=== PATIENT | female | born 1995 | race Caucasian/White ===

== ENCOUNTER 2017-02-05 09:42 | Emergency (ER) | payer BC ==
[~2017-02-05] VITALS: Ht 165.1 cm; Wt 54.4 kg
[~2017-02-05 09:42] MED LIST: AMOXICILLIN500 M2 PO; BACTRIM DS 8001 TA1 PO; CEPHALEXIN500 M1 PO; CYCLOBENZAPRINE10 MG PO; CYCLOBENZAPRINE5 M3 PO; KEFLEX500 MG PO; MACROBID100 M1 PO; Motrin,Rufen800 MG PO; NAPROSYN500 MG PO; PRILOSEC20 MG PO; PYRIDIUM200 MG PO; TAGAMET400 MG PO; ULTRAM50 MG PO; ZOFRAN ODT4 MG SL
[2017-02-05 09:48] VITALS: BP 146/82
[2017-02-05] MEDS ORDERED: PREDNISONE10 MG PO (10:01)
== END 2017-02-05 10:38 | disposition home or self-care (01) ==
LOC: ED 09:42
DX: L23.7 Allergic contact dermatitis due to plants, except food (principal); F17.200 Nicotine dependence, unspecified, uncomplicated

== ENCOUNTER 2017-03-23 00:58 | Emergency (ER) | payer BC ==
[~2017-03-23] VITALS: Ht 167.6 cm; Wt 54.4 kg
[~2017-03-23 00:58] MED LIST changes: +PREDNISONE10 MG PO
[2017-03-23 01:07] VITALS: BP 152/71
[2017-03-23] MEDS ORDERED: NAPROSYN500 MG PO (01:08)
[2017-03-23] MEDS ORDERED: CIPRO500 MG PO (01:09)
[2017-03-23 01:27] LABS: BILIRUBIN NEGATIVE (NEGATIVE); BLOOD NEGATIVE (NEGATIVE); CLARITY CLOUDY (CLEAR); COLOR YELLOW (YELLOW); GLUCOSE NEGATIVE (NEGATIVE); KETONE TRACE (NEGATIVE); LEUKO ESTERASE TRACE (NEGATIVE); NITRITE NEGATIVE (NEGATIVE); PROTEIN TRACE (NEGATIVE); SPECIFIC GRAVITY 1.015 (1.005-1.030)
[2017-03-23 01:35] LABS: BACTERIA 3+; EPITHELIAL CELLS 45-50; URINE REFLEX COMMENT YES (NO)
[2017-03-23 01:43] LABS: BASO % 0.1 % (0.0-1.0); EOS # 0.2 10*3/uL (0.0-0.4); EOS % 1.6 % (1.0-4.0); HEMATOCRIT 32.6 % (37.0-47.0); HEMOGLOBIN 10.9 g/dl (12.0-16.0); LYMPH # 1.7 10*3/uL (1.3-4.4); LYMPH % 16.5 % (27.0-41.0); MEAN CELL VOLUME 92.4 fl (81.0-99.0); MEAN CORPUSCULAR HGB 30.9 pg (27.0-31.0); MEAN CORPUSCULAR HGB CONC 33.4 g/dl (33.0-37.0); MEAN PLATELET VOLUME 10.3 fl (9.6-12.3); MONO # 1.3 10*3/uL (0.1-1.0); MONO % 13.1 % (3.0-9.0); NEUT % 68.4 % (47.0-73.0); PLATELET COUNT AUTOMATED 229 10*3/uL (130-400); RED BLOOD COUNT 3.53 10*6/uL (4.10-5.10); RED CELL DISTRI WIDTH 12.5 % (0-14.5); WHITE BLOOD COUNT 10.2 10*3/uL (4.8-10.8)
[2017-03-23 01:54] LABS: BUN 15 mg/dl (7-24); CARBON DIOXIDE 28 mmol/L (21-32); CHLORIDE 106 mmol/L (98-107); EST GLOM FILT AFRICAN AMERICAN > 60 ml/min; GLUCOSE 130 mg/dL (65-99); POTASSIUM 3.6 mmol/L (3.5-5.1); SODIUM 138 mmol/L (136-145)
[2017-03-23] MEDS ORDERED: BACTRIM DS 8001 TA1 PO (02:43)
== END 2017-03-23 03:07 | disposition home or self-care (01) ==
LOC: ED 00:58
PROVIDERS: Emergency Medicine; Physician Assistant
DX: N39.0 Urinary tract infection, site not specified (principal); F17.200 Nicotine dependence, unspecified, uncomplicated

== ENCOUNTER 2017-04-01 18:27 | Emergency (ER) | payer BC ==
[~2017-04-01] VITALS: Wt 97.5 kg
[~2017-04-01 18:27] MED LIST changes: +CIPRO500 MG PO
[2017-04-01 18:35] VITALS: BP 145/76
[2017-04-01] MEDS ORDERED: IBU800 MG PO (19:39)
== END 2017-04-01 19:54 | disposition home or self-care (01) ==
LOC: ED 18:27
DX: S82.402A Unspecified fracture of shaft of left fibula, initial encounter for closed fracture (principal); F17.200 Nicotine dependence, unspecified, uncomplicated; W10.9XXA Fall (on) (from) unspecified stairs and steps, initial encounter; Y93.89 Activity, other specified; Y92.9 Unspecified place or not applicable; Y99.9 Unspecified external cause status

== ENCOUNTER → 2017-10-01 | Outpatient (CLI) | payer BC ==
[~2017-10-01] MED LIST changes: +IBU800 MG PO
[2017-10-01 09:46] LABS: BASO % 0.4 % (0.0-1.0); EOS # 0.3 10*3/uL (0.0-0.4); EOS % 5.4 % (1.0-4.0); HEMATOCRIT 38.2 % (37.0-47.0); HEMOGLOBIN 12.6 g/dl (12.0-16.0); LYMPH # 1.6 10*3/uL (1.3-4.4); LYMPH % 33.8 % (27.0-41.0); MEAN CELL VOLUME 91.6 fl (81.0-99.0); MEAN CORPUSCULAR HGB 30.2 pg (27.0-31.0); MEAN PLATELET VOLUME 9.9 fl (9.6-12.3); MONO # 0.4 10*3/uL (0.1-1.0); MONO % 7.8 % (3.0-9.0); NEUT # 2.4 10*3/uL (2.3-7.9); NEUT % 52.4 % (47.0-73.0); PLATELET COUNT AUTOMATED 265 10*3/uL (130-400); RED BLOOD COUNT 4.17 10*6/uL (4.10-5.10); RED CELL DISTRI WIDTH 12.9 % (0-14.5); WHITE BLOOD COUNT 4.6 10*3/uL (4.8-10.8)
[2017-10-01 10:21] LABS: ALBUMIN 4.1 gm/dl (3.1-4.5); ALKALINE PHOSPHATASE 110 U/L (45-117); BUN 16 mg/dl (7-24); CHLORIDE 104 mmol/L (98-107); CREATININE 0.75 mg/dL (0.55-1.02); FREE T4 0.82 ng/dl (0.76-1.46); IRON 51 ug/dL (50-170); POTASSIUM 4.3 mmol/L (3.5-5.1); SGOT/AST 17 IU/L (3-35); SGPT/ALT 22 U/L (12-78); SODIUM 140 mmol/L (136-145); T3 UPTAKE 32 % (31-39); TOTAL IRON BINDING CAPACITY 376 ug/dl (250-450); TOTAL PROTEIN 7.6 gm/dL (6.4-8.2)
== END | disposition home or self-care (01) ==
LOC: LAB 09:14
DX: R53.83 Other fatigue (principal); R79.89 Other specified abnormal findings of blood chemistry

== ENCOUNTER 2017-11-17 23:57 | Emergency (ER) | payer SELFPAY ==
[~2017-11-17] VITALS: Ht 162.5 cm; Wt 111.1 kg
[2017-11-18 00:27] VITALS: BP 125/83
[2017-11-18] MEDS ORDERED: ZOFRAN ODT4 MG SL (01:11)
[2017-11-18] MEDS ORDERED: Motrin,Rufen800 MG PO (01:11)
== END 2017-11-18 01:57 | disposition home or self-care (01) ==
LOC: ED 23:57
DX: G43.909 Migraine, unspecified, not intractable, without status migrainosus (principal)

== ENCOUNTER → 2018-06-04 | Outpatient (CLI) | payer BC | END | disposition home or self-care (01) | LOC: RAD 10:46 | DX: N20.0 Calculus of kidney (principal); Z96.0 Presence of urogenital implants ==

== ENCOUNTER 2019-06-08 10:02 | Emergency (ER) | payer BC ==
[~2019-06-08] VITALS: Ht 167.6 cm; Wt 117.9 kg
[~2019-06-08 10:02] MED LIST changes: +MEDROL DOSEPAK4 MG PO
[2019-06-08 10:05] VITALS: BP 126/67
[2019-06-08] MEDS ORDERED: PENICILLIN-VK500 MG PO (10:43)
[2019-06-08] MEDS ORDERED: NAPROSYN500 MG PO (10:43)
== END 2019-06-08 11:12 | disposition home or self-care (01) ==
LOC: ED 10:02
DX: K02.9 Dental caries, unspecified (principal); Z88.2 Allergy status to sulfonamides

== ENCOUNTER 2019-08-07 23:08 | Emergency (ER) | payer BC ==
[~2019-08-07] VITALS: Ht 167.6 cm; Wt 117.9 kg
[~2019-08-07 23:08] MED LIST changes: +PENICILLIN-VK500 MG PO
[2019-08-07 23:12] VITALS: BP 109/50
[2019-08-08] MEDS ORDERED: PREDNISONE20 M1 PO (02:02)
[2019-08-08] MEDS ORDERED: AMOXICILLIN500 M2 PO (02:02)
== END 2019-08-08 02:19 | disposition home or self-care (01) ==
LOC: ED 23:08
DX: J01.90 Acute sinusitis, unspecified (principal); J45.909 Unspecified asthma, uncomplicated; G43.909 Migraine, unspecified, not intractable, without status migrainosus; Z88.2 Allergy status to sulfonamides

== ENCOUNTER 2020-07-25 08:43 | Emergency (ER) | payer SELFPAY ==
[~2020-07-25] VITALS: Ht 165.1 cm; Wt 131.5 kg
[~2020-07-25 08:43] MED LIST changes: +PREDNISONE20 M1 PO
[2020-07-25 08:49] VITALS: BP 139/74
[2020-07-25 09:13] LABS: BILIRUBIN Negative (Negative); BLOOD 2+ (Negative); CLARITY Cloudy (Clear); COLOR Yellow (Yellow); GLUCOSE Negative (Negative); KETONE Trace (Negative); LEUKO ESTERASE 1+ (Negative); NITRITE Negative (Negative)
[2020-07-25 09:20] LABS: BACTERIA 1+; EPITHELIAL CELLS 21-30
== END 2020-07-25 10:48 | disposition home or self-care (01) ==
LOC: ED 08:43
PROVIDERS: Student in an Organized Health Care Education/Training Program
DX: S39.012A Strain of muscle, fascia and tendon of lower back, initial encounter (principal); N23 Unspecified renal colic; G43.909 Migraine, unspecified, not intractable, without status migrainosus; Z87.442 Personal history of urinary calculi; Z88.2 Allergy status to sulfonamides; X58.XXXA Exposure to other specified factors, initial encounter; Y93.89 Activity, other specified; Y92.89 Other specified places as the place of occurrence of the external cause; Y99.8 Other external cause status

== ENCOUNTER 2020-11-29 17:03 | Emergency (ER) | payer SELFPAY ==
[~2020-11-29] VITALS: Ht 165.1 cm; Wt 127.0 kg
[2020-11-29 17:33] VITALS: BP 137/88
[2020-11-29] MEDS ORDERED: AUGMENTIN 875875 MG PO (19:24)
== END 2020-11-29 19:32 | disposition home or self-care (01) ==
LOC: ED 17:03
DX: S61.551A Open bite of right wrist, initial encounter (principal); Z88.2 Allergy status to sulfonamides; Z96.22 Myringotomy tube(s) status; W54.0XXA Bitten by dog, initial encounter; Y93.89 Activity, other specified; Y92.89 Other specified places as the place of occurrence of the external cause; Y99.8 Other external cause status